=== PATIENT | female | born 1945 | race Caucasian/White ===

== ENCOUNTER 2022-04-08 12:38 | Emergency (ER) | payer MEDICARE ==
[2022-04-08 13:00] VITALS: BP 180/89
[2022-04-08] MEDS ORDERED: AMOX/CLAV 875 MG/125 MG TABLET PO STA (14:00)
[2022-04-08] MEDS ORDERED: HYDROcod/ACETAM 5/325 MG TABLET PO STA (14:00)
[2022-04-08] MEDS ORDERED: TETANUS/DIPHTHERIA/PERTUSSIS 0.5 ML SYRINGE IM ONE (14:00)
[2022-04-08] MEDS ORDERED: BACITRACIN ZINC OINT 1 PACKET TOP STA (14:02)
--- NOTE | 2022-04-08 14:02 | ED Physician Documentation ---
PD HPI WOUND RECHECK - Stated complaint Stated Complaint: FACIAL DOG BITE - Chief complaint Chief Complaint: Wound - Histroy obtained from History obtained from: Patient - Additional information Additional information: 76-year-old woman with conservatively managed CLL and unknown tetanus status was bitten to the face by friends dog just prior to arrival as she was bending over to pet it. No other injuries. Review of Systems Constitutional: reports: Reviewed and negative Cardiac: reports: Reviewed and negative Respiratory: reports: Reviewed and negative PD PAST MEDICAL HISTORY - Present Medications Home Medications: Ambulatory Orders Medication Instructions Recorded Confirmed Amox/Clav 875/125 [Augmentin] 1 each PO Q12H #10 tablet 04/08/22 Bacitracin Zinc Oint 1 applic TOP BID #1 each 04/08/22 HYDROcod/ACETAM 5/325 [[place] 5/325] 1 - 2 tab PO Q6H PRN #10 tablet 04/08/22 - Allergies Allergies/Adverse Reactions: Allergies Allergy/AdvReac Type Severity Reaction Status Date / Time No Known Drug Allergies Allergy Verified 04/08/22 12:59 PD ED PE NORMAL - Vitals Vital signs reviewed: Yes - General General: Alert and oriented X 3, No acute distress - HEENT HEENT: PERRL, EOMI - Neck Neck: Supple, no meningeal sign, No bony TTP - Neuro Neuro: Alert and oriented X 3, Normal speech - Psych Psych: Normal mood, Normal affect PD ED PE EXPANDED - HEENT HEENT Visual: 1 - bruising (Abrasions in the shape of a dog's mouth) 2 - laceration (Shallow puncture) 3 - laceration (Linear abrasion/very shallow laceration) 4 - swelling (No dental tenderness, no deformity) Results - Vitals Vitals: Vital Signs - 24 hr 04/08/22 12:56 Temperature 36.7 C Heart Rate 89 Respiratory 18 Rate Blood Pressure 180/89 H O2 Saturation 97 Oxygen O2 Source Room air Departure - Departure Disposition: 01 Home, Self Care Condition: Good Record reviewed to determine appropriate education?: Yes Instructions: Bites Scratches Animal Prescriptions: Amox/Clav 875/125 [Augmentin] 1 each PO Q12H #10 tablet Bacitracin Zinc Oint 1 applic TOP BID #1 each HYDROcod/ACETAM 5/325 [[place] 5/325] 1 - 2 tab PO Q6H PRN #10 tablet PRN Reason: Pain Comments: I sent your prescriptions electronically to the [facility] in [place]. Come back for any signs of infection which would include: Redness, swelling, drainage, increased pain, or fevers. You can wash it soap and water. Keep it covered and moist with bacitracin ointment which is available over the counter; avoid neosporin. I am prescribing a short course of narcotic pain medication for you. These are potentially dangerous and addictive medications that should be used carefully. These medications may constipate you. Take an rgps-kpy-shiciwd stool softener (docusate) twice daily with plenty of water while taking these medications. If you go 24 hours without a bowel movement, take gubr-ujp-zetynza miralax, per package instructions. Do not drink or drive while taking these medications. If you received narcotic or sedating medications while in the emergency de partment, do not drive for 24 hours. Store this medication in a safe, secure place and out of reach of children. It is a violation of federal law to give or sell this medication to another person or to use in a manner other than prescribed. The ED will not refill narcotic prescriptions, including prescriptions lost or stolen. To dispose of unwanted medications: 1. [facility] at [address] [place] [address] in [place] has a medication drop box. They accept prescription medications (in pill form) Tuesday through Tuesday 9:00 a.m. to 5:00 p.m. 2. The [place] [employer] accepts prescription medications (in pill form only) for disposal year round. Call for more information. 3. Contact the [facility] for the next [facility] sponsored prescription drug collection event. , [phone], or [phone]; Note that many narcotic pain relievers also contain Tylenol/acetaminophen. Please ensure that your total dose of acetaminophen from all sources does not exceed 3 g (3000 mg) per day.
== END 2022-04-08 14:32 | disposition home or self-care (01) ==
LOC: ED 12:38
DX: S00.571A Other superficial bite of lip, initial encounter (principal); S01.85XA Open bite of other part of head, initial encounter; W54.0XXA Bitten by dog, initial encounter; Y93.K9 Activity, other involving animal care
CPT/HCPCS: 90471; 99282; 99283

== ENCOUNTER 2022-04-08 17:46 | Emergency (ER) | payer MEDICARE ==
[2022-04-08 18:10] VITALS: BP 150/76
[2022-04-08] MEDS ORDERED: AMOX/CLAV 875 MG/125 MG TABLET PO STA (18:13)
[2022-04-08] MEDS ORDERED: HYDROcod/ACET 5/325 Prepack 4 PO STA (18:13)
--- NOTE | 2022-04-08 18:15 | ED Physician Documentation ---
PD HPI HEAD INJURY - Stated complaint Stated Complaint: HOLE IN CHEEK - Chief complaint Chief Complaint: Laceration - History obtained from History obtained from: Patient - Additional information Additional information: She was seen earlier in the day for multiple dog bites to the face. After discharge one of the lacerations which was thought to be shallow initially kind of opened up and started gaping. Review of Systems Constitutional: reports: Reviewed and negative Eyes: reports: Reviewed and negative Throat: reports: Reviewed and negative PD PAST MEDICAL HISTORY - Present Medications Home Medications: Ambulatory Orders Medication Instructions Recorded Confirmed Amox/Clav 875/125 [Augmentin] 1 each PO Q12H #10 tablet 04/08/22 04/08/22 Amox/Clav 875/125 [Augmentin] 1 each PO Q12H #14 tablet 04/08/22 Bacitracin Zinc Oint 1 applic TOP BID #1 each 04/08/22 Bacitracin Zinc Oint 1 applic TOP BID #1 each 04/08/22 04/08/22 HYDROcod/ACETAM 5/325 [[place] 5/325] 1 - 2 tab PO Q6H PRN #10 tablet 04/08/22 04/08/22 HYDROcod/ACETAM 5/325 [Energy 5/325] 1 - 2 tab PO Q6H PRN #15 tablet 04/08/22 - Allergies Allergies/Adverse Reactions: Allergies Allergy/AdvReac Type Severity Reaction Status Date / Time No Known Drug Allergies Allergy Verified 04/08/22 18:10 PD ED PE NORMAL - Vitals Vital signs reviewed: Yes - General General: Alert and oriented X 3, No acute distress - HEENT HEENT: Other (The laceration over the left mandible is now gaping on the lateral side which was not earlier.) - Neck Neck: Supple, no meningeal sign, No bony TTP - Neuro Neuro: Alert and oriented X 3, Normal speech Results - Vitals Vitals: Vital Signs - 24 hr 04/08/22 18:07 Temperature 36.8 C Heart Rate 78 Respiratory 16 Rate Blood Pressure 150/76 H O2 Saturation 96 Oxygen O2 Source Room air Procedures - Laceration (location) Left mandible area Length in cm: 1 Wound type: Linear, Into subcut fat Anesthesia: Lidocaine 1% with epi Wound preparation: Irrigated copiously NS Skin layer closure: Prolene, Interrupted, Size #-0 - enter number (6-0), Sutures - enter # (2) Other: Patient tolerated well, No complications, Neurovascular intact, Tetanus UTD Departure - Departure Disposition: 01 Home, Self Care Clinical Impression: Dog bite Qualifiers: Encounter type: initial encounter Qualified Code(s): W54.0XXA - Bitten by dog, initial encounter Condition: Good Record reviewed to determine appropriate education?: Yes Instructions: ED Bite Dog, ED Laceration Facial Sutr Tape Prescriptions: Amox/Clav 875/125 [Augmentin] 1 each PO Q12H #14 tablet Bacitracin Zinc Oint 1 applic TOP BID #1 each HYDROcod/ACETAM 5/325 [Energy 5/325] 1 - 2 tab PO Q6H PRN #15 tablet PRN Reason: Pain Comments: I sent your prescription electronically to [facility] in [place]. Come back for any signs of infection which would include: Redness, swelling, drainage, increased pain, or fevers. You can wash it soap and water. Keep it covered and moist with bacitracin ointment which is available over the counter; avoid neosporin. Follow-up with your physician in about 6-7 days for suture removal I am prescribing a short course of narcotic pain medication for you. These are potentially dangerous and addictive medications that should be used carefully. These medications may constipate you. Take an gilr-stx-eklwzqm stool softener (docusate) twice daily with plenty of water while taking these medications. If you go 24 hours without a bowel movement, take gbyb-chk-qnrewwf miralax, per package instructions. Do not drink or drive while taking these medications. If you received narcotic or sedating medications while in the emergency department, do not drive for 24 hours. Store this medication in a safe, secure place and out of reach of children. It is a violation of federal law to give or sell this medication to another person or to use in a manner other than prescribed. The ED will not refill narcotic prescriptions, including prescriptions lost or stolen. To dispose of unwanted medications: 1. [facility] at [address] in [place] has a medication drop box. They accept prescription medications (in pill form) Tuesday through Tuesday 9:00 a.m. to 5:00 p.m. 2. The [facility] accepts prescription medications (in pill form only) for disposal year round. Call for more information. 3. Contact the [facility] for the next [facility] sponsored prescription drug collection event. , [phone], or [phone]; Note that many narcotic pain relievers also contain Tylenol/acetaminophen. Please ensure that your total dose of acetaminophen from all sources does not exceed 3 g (3000 mg) per day.
[2022-04-08] MEDS ORDERED: BACITRACIN ZINC OINT 1 PACKET TOP STA (18:29)
== END 2022-04-08 18:35 | disposition home or self-care (01) ==
LOC: ED 17:46
DX: S01.85XA Open bite of other part of head, initial encounter (principal); S00.571A Other superficial bite of lip, initial encounter; W54.0XXA Bitten by dog, initial encounter; Y93.59 Activity, other involving other sports and athletics played individually
CPT/HCPCS: 12011; 90471; 90715; 99282; 99283; A9270

== ENCOUNTER 2024-01-23 20:30 | Inpatient (IN) | payer MEDICARE ==
[2024-01-23 21:09] LABS: BASOPHILS % (AUTO) 0.2 %; EOSINOPHILS % (AUTO) 0.2 %; HCT - HEMATOCRIT 35.2 % (37.0-47.0); HGB - HEMOGLOBIN 10.9 g/dL (12.0-16.0); LYMPHOCYTES % (AUTO) 73.4 %; MONOCYTES % (AUTO) 2.2 %; NEUTROPHILS % (AUTO) 23.8 %; PLT - PLATELET COUNT 208 10^3/uL (130-450); RED BLOOD COUNT 3.63 10^6/uL (4.20-5.40); RED CELL DISTRIBUTION WIDTH 14.1 % (12.0-15.0); WHITE BLOOD COUNT 32.7 x10^3/uL (4.8-10.8)
[2024-01-23 21:11] LABS: BAND NEUTROPHILS % (MANUAL) 0 %
[2024-01-23 21:25] LABS: BILIRUBIN,URINE NEGATIVE (NEGATIVE); GLUCOSE, URINE (UA) NEGATIVE (NEGATIVE); KETONES,URINE (UA) 15 mg/dL (NEGATIVE); LEUKOCYTE ESTERASE, URINE NEGATIVE (NEGATIVE); NITRITE,URINE NEGATIVE (NEGATIVE); OCCULT BLOOD,URINE SMALL (NEGATIVE); PH,URINE 6.5 PH (5.0-7.5); PROTEIN,URINE NEGATIVE (NEGATIVE); UROBILINOGEN,URINE 0.2 (NORMAL) E.U./dL (NORMAL)
[2024-01-23 21:25] LABS: ALBUMIN 4.3 g/dL (3.2-5.5); CALCIUM 8.7 mg/dL (8.5-10.3); CREATININE 0.8 mg/dL (0.6-1.3); POTASSIUM 3.8 mmol/L (3.5-4.5); TOTAL PROTEIN 6.4 g/dL (6.4-8.9)
[2024-01-23 21:31] LABS: CLARITY,URINE CLEAR (CLEAR)
--- NOTE | 2024-01-23 21:35 | ED Physician Documentation ---
PD HPI ABD PAIN - Stated complaint Stated Complaint: R SIDE PX - Chief complaint Chief Complaint: Abd Pain - History obtained from History obtained from: Patient - History of Present Illness Timing - onset: How many months ago Quality: Cramping, Aching, Pain PD PAST MEDICAL HISTORY - Past Medical History Past Medical History: Yes GI: Diverticulitis - Past Surgical History Past Surgical History: Yes - Present Medications Home Medications: Ambulatory Orders Medication Instructions Recorded Confirmed Fluorometholone [Fml] 1 drops EACHEYE DAILY 01/24/24 01/24/24 Rosuvastatin Calcium [Crestor] 5 mg PO DAILY 01/24/24 01/24/24 Temazepam [Restoril] 7.5 mg PO HS 01/24/24 01/24/24 - Allergies Allergies/Adverse Reactions: Allergies Allergy/AdvReac Type Severity Reaction Status Date / Time diphenhydramine Allergy Itching Verified 01/23/24 20:34 [From Benadryl] - Social History Does the pt smoke?: No Smoking Status: Never smoker Does the pt drink ETOH?: No Does the pt have substance abuse?: No - Immunizations Immunizations are current?: Yes PD ED PE NORMAL - Vitals Vital signs reviewed: Yes - General General: Alert and oriented X 3, Well developed/nourished, Other. No: No acute distress (she appears in pain from left abd. ) - Neck Neck: Supple, no meningeal sign, No adenopathy - Cardiac Cardiac: RRR, No murmur - Respiratory Respiratory: No respiratory distress, Clear bilaterally - Abdomen Abdomen: Non distended Results - Vitals Vitals: Vital Signs - 24 hr 01/24/24 01/25/24 01/25/24 23:53 04:45 07:57 Temperature 36.4 C L 36.8 C 36.7 C Heart Rate [ 72 75 73 Brachial] Respiratory 20 16 18 Rate Blood Pressure 118/68 119/57 L 116/55 L [Left Brachial artery] O2 Saturation 97 93 93 Oxygen O2 Source Room air - Labs Labs: Laboratory Tests 01/23/24 01/23/24 01/23/24 21:03 21:03 21:15 WBC 32.7 H RBC 3.63 L Hgb 10.9 L Hct 35.2 L MCV 97.0 MCH 30.0 MCHC 31.0 L RDW 14.1 Plt Count 208 MPV 9.0 Neut # (Auto) Not Reportable Lymph # (Auto) Not Reportable [place] # (Auto) Not Reportable Eos # (Auto) Not Reportable Baso # (Auto) Not Reportable Absolute Nucleated RBC Not Reportable Total Counted 100 Band Neuts % (Manual) 0 Abnorm Lymph % (Manual) 3 Nucleated RBC % Not Reportable Neutrophils # (Manual) 5.6 Lymphocytes # (Manual) 26.5 H Monocytes # (Manual) 0.7 Eosinophils # (Manual) 0.0 Basophils # (Manual) 0.0 Differential Comment MANUAL DIFFERENTIAL Manual Slide Review WBC Morphology 1+ SMUDGE CELLS Platelet Estimate NORMAL (130-450,000) Platelet Morphology RBC Morph Micro Appear NORMAL APPEARANCE Sodium 133 L Potassium 3.8 Chloride 100 L Carbon Dioxide 26 Anion Gap 7.0 BUN 9 Creatinine 0.8 Estimated GFR (MDRD) 70 L Glucose 96 Lactic Acid Calcium 8.7 Total Bilirubin 1.0 AST 13 ALT 10 Alkaline Phosphatase 37 L Total Protein 6.4 Albumin 4.3 Globulin 2.1 Albumin/Globulin Ratio 2.0 Lipase 20 Urine Color COLORLESS Urine Clarity CLEAR Urine pH 6.5 Ur Specific [place] <=1.005 Urine Protein NEGATIVE Urine Glucose (UA) NEGATIVE Urine Ketones 15 H Urine Occult Blood SMALL H Urine Nitrite NEGATIVE Urine Bilirubin NEGATIVE Urine Urobilinogen 0.2 (NORMAL) Ur Leukocyte Esterase NEGATIVE Urine RBC 0-5 Urine WBC 0-3 Ur Squamous Epith Cells RARE Squamous Urine Bacteria Rare Ur Microscopic Review INDICATED Urine Culture Comments NOT INDICATED Slides for Path Review 01/24/24 01/24/24 01/24/24 00:03 05:58 05:58 WBC 21.4 H RBC 3.45 L Hgb 10.7 L Hct 33.7 L MCV 97.7 MCH 31.0 MCHC 31.8 L RDW 14.2 Plt Count 173 MPV 9.3 Neut # (Auto) Not Reportable Lymph # (Auto) Not Reportable [place] # (Auto) Not Reportable Eos # (Auto) Not Reportable Baso # (Auto) Not Reportable Absolute Nucleated RBC Not Reportable Total Counted 100 Band Neuts % (Manual) 0 Abnorm Lymph % (Manual) 0 Nucleated RBC % Not Reportable Neutrophils # (Manual) 7.9 H Lymphocytes # (Manual) 13.3 H Monocytes # (Manual) 0.2 Eosinophils # (Manual) 0.0 Basophils # (Manual) 0.0 Differential Comment MANUAL DIFFERENTIAL Manual Slide Review WBC Morphology Platelet Estimate NORMAL (130-450,000) Platelet Morphology RBC Morph Micro Appear NORMAL APPEARANCE Sodium 140 Potassium 3.9 Chloride 111 Carbon Dioxide 23 Anion Gap 6.0 BUN 7 Creatinine 0.7 Estimated GFR (MDRD) 81 L Glucose 84 Lactic Acid 0.7 Calcium 7.8 L Total Bilirubin AST ALT Alkaline Phosphatase Total Protein Albumin Globulin Albumin/Globulin Ratio Lipase Urine Color Urine Clarity Urine pH Ur Specific [place] Urine Protein Urine Glucose (UA) Urine Ketones Urine Occult Blood Urine Nitrite Urine Bilirubin Urine Urobilinogen Ur Leukocyte Esterase Urine RBC Urine WBC Ur Squamous Epith Cells Urine Bacteria Ur Microscopic Review Urine Culture Comments Slides for Path Review 01/24/24 01/24/24 01/24/24 05:58 11:50 15:15 WBC 22.8 H RBC 3.38 L Hgb 10.3 L Hct 33.7 L MCV 99.7 H MCH 30.5 MCHC 30.6 L RDW 14.3 Plt Count 188 MPV 9.4 Neut # (Auto) Not Reportable Lymph # (Auto) Not Reportable [place] # (Auto) Not Reportable Eos # (Auto) Not Reportable Baso # (Auto) Not Reportable Absolute Nucleated RBC Not Reportable Total Counted 100 Band Neuts % (Manual) 0 Abnorm Lymph % (Manual) 0 Nucleated RBC % Not Reportable Neutrophils # (Manual) 9.8 H Lymphocytes # (Manual) 12.3 H Monocytes # (Manual) 0.5 Eosinophils # (Manual) 0.0 Basophils # (Manual) 0.2 H Differential Comment MANUAL DIFFERENTIAL Manual Slide Review WBC Morphology Platelet Estimate NORMAL (130-450,000) Platelet Morphology NORMAL APPEARANCE RBC Morph Micro Appear NORMAL APPEARANCE Sodium Potassium Chloride Carbon Dioxide Anion Gap BUN Creatinine Estimated GFR (MDRD) Glucose Lactic Acid 0.7 0.6 Calcium Total Bilirubin AST ALT Alkaline Phosphatase Total Protein Albumin Globulin Albumin/Globulin Ratio Lipase Urine Color Urine Clarity Urine pH Ur Specific [place] Urine Protein Urine Glucose (UA) Urine Ketones Urine Occult Blood Urine Nitrite Urine Bilirubin Urine Urobilinogen Ur Leukocyte Esterase Urine RBC Urine WBC Ur Squamous Epith Cells Urine Bacteria Ur Microscopic Review Urine Culture Comments Slides for Path Review 01/24/24 01/25/24 01/25/24 18:20 04:49 04:49 WBC 17.2 H RBC 2.98 L Hgb 8.8 L Hct 29.5 L MCV 99.0 MCH 29.5 MCHC 29.8 L RDW 14.2 Plt Count 165 MPV 9.2 Neut # (Auto) Not Reportable Lymph # (Auto) Not Reportable [place] # (Auto) Not Reportable Eos # (Auto) Not Reportable Baso # (Auto) Not Reportable Absolute Nucleated RBC Not Reportable Total Counted 100 Band Neuts % (Manual) 0 Abnorm Lymph % (Manual) 0 Nucleated RBC % Not Reportable Neutrophils # (Manual) 4.8 Lymphocytes # (Manual) 12.0 H Monocytes # (Manual) 0.3 Eosinophils # (Manual) 0.0 Basophils # (Manual) 0.0 Differential Comment MANUAL DIFFERENTIAL Manual Slide Review Indicated WBC Morphology 1+ SMUDGE CELLS Platelet Estimate NORMAL (130-450,000) Platelet Morphology NORMAL APPEARANCE RBC Morph Micro Appear 1+ HYPOCHROMASIA Sodium 140 Potassium 3.2 L Chloride 110 Carbon Dioxide 24 Anion Gap 6.0 BUN 4 L Creatinine 0.6 Estimated GFR (MDRD) 97 Glucose 82 Lactic Acid 0.5 Calcium 6.9 L Total Bilirubin AST ALT Alkaline Phosphatase Total Protein Albumin Globulin Albumin/Globulin Ratio Lipase Urine Color Urine Clarity Urine pH Ur Specific [place] Urine Protein Urine Glucose (UA) Urine Ketones Urine Occult Blood Urine Nitrite Urine Bilirubin Urine Urobilinogen Ur Leukocyte Esterase Urine RBC Urine WBC Ur Squamous Epith Cells Urine Bacteria Ur Microscopic Review Urine Culture Comments Slides for Path Review Indicated PD Medical Decision Making - ED course Complexity details: reviewed results (diverticulitis transverse colon in area of her pain. No abscess nor perforation), considered differential (quick onset of RUQ abd pian today with nausea and worsening pain. Some vomiting. Normal BMs. Has had once prior in this location from diverticulitis. Other episdoes of that have been LLQ. Recent hospitalization for lower GI bleed, presume left sigmoid. Prior left partial colectomy due to this. ), d/w patient Reviewed Lab Results: eleated WBC in range that is usual for her at 35K due to CLL. Is igen IV fluids and eds for pian and mausa. Impoved but sill huritng. Given the degree of pain, abruptness, with some quadrantic peritoneal findings on exam, and immuneimpaired with the CLL, I [facility] Departure - Departure Disposition: ED Place in Observation Clinical Impression: CLL (chronic lymphocytic leukemia), Abdominal pain, Acute diverticulitis Condition: Stable Discharge Date/Time: 01/24/24 00:01
[2024-01-23 21:36] LABS: BACTERIA,URINE Rare /HPF (None Seen); RBC,URINE 0-5 /HPF (0-5); SQUAMOUS EPITHELIAL CELL,UR RARE Squamous (<= Few); WBC,URINE 0-3 /HPF (0-5)
[2024-01-23 21:39] LABS: ABNORMAL LYMPHS % (MANUAL) 3 %; DIFFERENTIAL COMMENT MANUAL DIFFERENTIAL; LYMPHOCYTES # (MANUAL) 26.5 10^3/uL (1.5-3.5); LYMPHOCYTES % (MANUAL) 78 %; MONOCYTES # (MANUAL) 0.7 10^3/uL (0.0-1.0); NEUTROPHILS # (MANUAL) 5.6 10^3/uL (1.5-6.6); PLATELET ESTIMATE, MANUAL NORMAL (130-450,000) (NORMAL); RBC MORPHOLOGY (MULTIPLE) NORMAL APPEARANCE (NORMAL)
[2024-01-23 21:50] LABS: WBC MORPHOLOGY (MULTIPLE) 1+ SMUDGE CELLS (NORMAL)
[2024-01-23] MEDS ORDERED: iohexoL-300 100 ML VIAL ONE (22:04)
[2024-01-23] MEDS: SODIUM CHLORIDE 0.9% 1,000 ML IV STA (22:14)
[2024-01-23] MEDS: ONDANSETRON 4 MG/2 ML VIAL IVP STA (22:14)
[2024-01-23] MEDS: KETOROLAC 15 MG/ML VIAL IVP STA (22:14)
[2024-01-23] MEDS: HYDROmorphone 1 MG/ML CARPUJECT IVP STA (22:15)
[2024-01-23] MEDS: iohexoL-300 100 ML VIAL IVP ONE (22:16)
--- NOTE | 2024-01-23 22:31 | CT Report ---
PROCEDURE: Abdomen/Pelvis W INDICATIONS: Right abd pain, h/o diverticulitis. CONTRAST: Omni 300, 100mls TECHNIQUE: After the administration of intravenous contrast, a CT scan of the abdomen and pelvis was performed. Images were recorded and evaluated at appropriate window settings. Reformats: coronal and sagittal. F or radiation dose reduction, the following was used: automated exposure control, adjustment of mA and /or kV according to patient size. COMPARISON: None. FINDINGS: Image quality: Diagnostic. Lower chest: Unremarkable. Liver: No solid mass. Gallbladder: No radiopaque stones or wall thickening. Biliary tree: No intrahepatic or extrahepatic dilation, accounting for age. Spleen: No splenomegaly. Pancreas: No pancreatic ductal dilation. Adrenals: No adrenal nodule. Kidneys and ureters: No hydronephrosis. No solid mass. Left kidney inferior pole cyst measuring 2.5 c m, (). Several thin septations. Stomach, bowel and peritoneum: Rectosigmoid anastomosis. Diverticulosis. Inflammatory change about th e proximal transverse colon, (). No extraluminal gas. The appendix is not seen. No small bowel ob struction. The stomach is within normal limits. No pneumoperitoneum. No ascites. Lymph nodes: No central or retroperitoneal adenopathy. Vessels: No infrarenal aortic aneurysm. Calcified plaque. PELVIS Reproductive organs: Uterus is absent. Bladder: No stone. Pelvic lymph nodes: No pelvic adenopathy by size criteria. Bones: No aggressive osseous abnormality. Other: No significant ventral or inguinal hernia. IMPRESSION: 1. Proximal transverse colon diverticulitis. No abscess. 2. Rectosigmoid anastomosis. No small bowel obstruction. No adenopathy. Reviewed by: Ruddy Corrigan MD on 01/23/2024 10:29 PM PDT Approved by: Ruddy Corrigan MD on 01/23/2024 10:29 PM PDT Station ID: [id number]
[2024-01-23] MEDS: metroNIDAZOLE 500 MG/100 ML 500 MG/100 ML BAG IV ONE (23:11)
[2024-01-23] MEDS: cefTRIAXone 1 GM VIAL IVP STA (23:11)
--- NOTE | 2024-01-23 23:59 | HISTORY & PHYSICAL EXAMINATION ---
Chief Complaint - Chief Complaint Chief Complaint: abdominal pain History of Present Illness - Admitted From Admitted From:: Home - History Obtained From Records Reviewed: Yes History obtained from: Patient - History of Present Illness HPI Comment/Other: Mrs. Penaloza is a 78yo F with a history of diverticulosis who presented to the ED with abdominal pain. Pain has progressively worsened for the past several days. It is more generalized but located in the upper right and left quadrants of her abdomen. she has some nausea, but no vomiting. she denies any sick contacts. she is visiting from out of town. she was recently discharge from the hospital due to diverticular bleeding. she did require blood transfusion of 1 unit PRBC. she was to follow up with her primary GI specialist for a colonoscopy in the upcoming weeks. Chart reviewed for this admission. patient met sepsis criteria on presentation. CT was obtained and demonstrated changes consistent with diverticulitis of the transverse colon. during my evaluation patient was resting comfortably and rated her pain 5/10 in intensity. this visit was performed using telemedicine modalities incluidng live-video. Informed consent was obtained from patient to proceed with this visit via tele medicine. History - Past Medical History GI: reports: Diverticulitis MRSA Hx?: No Meds/Allgy - Home Medications Home Medications: Ambulatory Orders Medication Instructions Recorded Confirmed Amox/Clav 875/125 [Augmentin] 1 each PO Q12H #10 tablet 04/08/22 04/08/22 Amox/Clav 875/125 [Augmentin] 1 each PO Q12H #14 tablet 04/08/22 Bacitracin Zinc Oint 1 applic TOP BID #1 each 04/08/22 Bacitracin Zinc Oint 1 applic TOP BID #1 each 04/08/22 04/08/22 HYDROcod/ACETAM 5/325 [[place] 5/325] 1 - 2 tab PO Q6H PRN #10 tablet 04/08/22 04/08/22 HYDROcod/ACETAM 5/325 [[place] 5/325] 1 - 2 tab PO Q6H PRN #15 tablet 04/08/22 - Allergies Allergies/Adverse Reactions: Allergies Allergy/AdvReac Type Severity Reaction Status Date / Time diphenhydramine Allergy Itching Verified 01/23/24 20:34 [From [place]itos] Review of Systems - Gastrointestinal Gastrointestinal: reports: Abdominal pain, Nausea. denies: Vomiting, Coffee grounds emesis - All Other Systems All Other Systems: reports: Reviewed and negative Exam - Vital Signs Reviewed Vital Signs: Yes Vital Signs: Vital Signs x48h Temp Pulse Resp BP Pulse Ox 01/23/24 23:29 84 18 122/67 95 01/23/24 22:11 36.8 C 96 18 154/87 H 96 01/23/24 20:35 36.8 C 79 16 160/80 H 100 - Physical Exam General Appearance: positive: No acute distress, Alert Eyes Bilateral: positive: Normal inspection, EOMI Respiratory: positive: No respiratory distress, Breath sounds nml Cardiovascular: positive: Regular rate & rhythm, Tachycardia Abdomen: positive: No distention, Tenderness. negative: Guarding Neurologic/Psychiatric: positive: Oriented x3 Sepsis Event Note (H) - Evaluation Current Stage of Sepsis: Sepsis Possible source of Sepsis: positive: GI tract/intra-abdominal - Sepsis Criteria Sepsis Criteria: Recorded Heart Rate greater than 90 bpm, WBC count greater than 10% bands Conclusion/Plan - Problem List (1) Acute diverticulitis Conclusion/Plan: -continue with IV antibiotics: Flagyl q8h and ciprofloxacin -bowel rest, clear liquids and advance after 12 hours as tolerated -pain management: IV tylenol and morphine, switch to oral regiman as toleated -trend inflammatory markers, Lactic acid, wbc -follow up CT if pain or symptoms worsen, may require follow up with general surgery or GI consultation if symptoms are not controlled (2) Sepsis Conclusion/Plan: closely monitor with continuous telemetry, serial BP and temperature monitoring -continue with empiric antibiotics and IVF resuscitation -trend inflammatory marker to resolution. -cultures pending. - Lab Results Fish Bones: 01/23/24 21:03 01/23/24 21:03 Core Measures - Anticipated LOS I expect patient to be DC'd or transferred within 96 hours.: Yes Telemedicine Consult Details - Provider Location & Consult Time Telemedicine consultation conducted via videoconferencing?: Yes
[2024-01-24] MEDS: SODIUM CHLORIDE 0.9% 1,000 ML IV SCH ×2 (00:45→19:07)
[2024-01-24] MEDS: ACETAMINOPHEN 1,000 MG/100 ML 1,000 MG/100 ML BAG IV PRN (00:48)
[2024-01-24] MEDS: SODIUM CHLORIDE FLUSH 0.9% 10 ML SYRINGE IVP SCH (00:52)
[2024-01-24] MEDS: CIPROFLOXACIN 400 MG/200 ML 400 MG/200 ML BAG IV SCH (01:14)
[2024-01-24] MEDS: ONDANSETRON 4 MG/2 ML VIAL IVP PRN (01:34)
[2024-01-24] MEDS: metroNIDAZOLE 500 MG/100 ML 500 MG/100 ML BAG IV SCH (02:39)
[2024-01-24] MEDS: MORPHINE 2 MG/ML CARPUJECT IVP PRN (05:46)
[2024-01-24 06:06] LABS: BASOPHILS % (AUTO) 0.2 %; EOSINOPHILS % (AUTO) 0.1 %; HCT - HEMATOCRIT 33.7 % (37.0-47.0); HGB - HEMOGLOBIN 10.7 g/dL (12.0-16.0); LYMPHOCYTES % (AUTO) 71.2 %; MEAN CORPUSCULAR HGB CONC 31.8 g/dL (32.0-36.0); MEAN CORPUSCULAR VOLUME 97.7 fL (81.0-99.0); MEAN PLATELET VOLUME 9.3 fL (7.9-10.8); MONOCYTES % (AUTO) 2.6 %; NEUTROPHILS % (AUTO) 25.7 %; PLT - PLATELET COUNT 173 10^3/uL (130-450); RED BLOOD COUNT 3.45 10^6/uL (4.20-5.40); RED CELL DISTRIBUTION WIDTH 14.2 % (12.0-15.0); WHITE BLOOD COUNT 21.4 x10^3/uL (4.8-10.8)
[2024-01-24 06:10] LABS: ABNORMAL LYMPHS % (MANUAL) 0 %; BAND NEUTROPHILS % (MANUAL) 0 %
[2024-01-24 06:25] LABS: CALCIUM 7.8 mg/dL (8.5-10.3); CREATININE 0.7 mg/dL (0.6-1.3); POTASSIUM 3.9 mmol/L (3.5-4.5)
[2024-01-24 06:32] LABS: DIFFERENTIAL COMMENT MANUAL DIFFERENTIAL; LYMPHOCYTES # (MANUAL) 13.3 10^3/uL (1.5-3.5); LYMPHOCYTES % (MANUAL) 62 %; MONOCYTES # (MANUAL) 0.2 10^3/uL (0.0-1.0); NEUTROPHILS # (MANUAL) 7.9 10^3/uL (1.5-6.6); PLATELET ESTIMATE, MANUAL NORMAL (130-450,000) (NORMAL); RBC MORPHOLOGY (MULTIPLE) NORMAL APPEARANCE (NORMAL)
--- NOTE | 2024-01-24 09:21 | PROVIDER PROGRESS NOTE ---
Subjective - Prog Note Date Prog Note Date: 01/24/24 Prog Note Time: 09:20 - Subjective Pt reports feeling: Worse Subjective: she flew from [place] yesterday and was feeling worse and worse throughout the day. When she got to [facility] yesterday evening she was feeling quite poorly she tried [id number] pain relievers without much help. She was unable to tolerate small amounts of food but the abdominal pain kept worsening and therefore she presented to the emergency department. Her CT showed diverticulitis without abscess or perforation. She continues to have nausea and dry heaving. She continues to have a lot of abdominal pain. 2 weeks ago she was hospitalized back in her hometown of [facility] for a diverticular bleed. She is in the process of traveling for several months she is here on the [facility] seeing family and then planning to spend the better part of the winter in [place]. She and her are questioning this decision at this time. We had a long discussion about plans for the winter regarding her health this afternoon. I anticipate that this will be a decision that can be made in the next several days but not today. We did have a brief advance care planning discussion this afternoon lasting about 10 minutes we elected for DNR with selective treatment. Tatiana would not want to be intubated for any length of time. Current Medications - Current Medications Current Medications: Medications Morphine Sulfate (Morphine 2 Mg/Ml Carpuject) 2 mg IVP Q2HR PRN PRN Reason: Pain 8 to 10 Last Admin: 01/24/24 15:34 Dose: 2 mg Acetaminophen (Acetaminophen) 1,000 mg in 100 mls @ 400 mls/hr IV Q6HR PRN PRN Reason: Moderate Pain (Level 4-6) Ciprofloxacin (Cipro 400 Mg/200 Ml) 400 mg in 200 mls @ 200 mls/hr IV Q12H HAYLEY Last Admin: 01/24/24 15:15 Dose: Infused Docusate Sodium (Docusate Sodium 250 Mg Capsule) 250 mg PO DAILY HAYLEY Lorazepam (Lorazepam 2 Mg/Ml Vial) 1 mg IVP Q4H PRN PRN Reason: Nausea / Vomiting Metronidazole (Flagyl 500 Mg/100 Ml) 500 mg in 100 mls @ 100 mls/hr IV Q8H HAYLEY Last Admin: 01/24/24 16:35 Dose: Infused Oxycodone HCl (Oxycodone 5 Mg Tablet) 5 mg PO Q4HR PRN PRN Reason: Moderate Pain (Level 4-6) Patient Own Medication (Patient Own Med (Fluorometholone 0.1% Eye Drops)) 1 each EACHEYE DAILY HAYLEY Last Admin: 01/24/24 15:14 Dose: 1 each Prochlorperazine Edisylate (Prochlorperazine 10 Mg/2 Ml Vial) 10 mg IVP Q6HR PRN PRN Reason: Nausea / Vomiting Last Admin: 01/24/24 16:43 Dose: 10 mg Objective - Vital Signs/Intake & Output Vital Signs: Vital Signs x48h Temp Pulse Resp BP Pulse Ox O2 Flow Rate 01/24/24 08:24 36.4 C L 68 19 112/56 L 93 0 01/24/24 05:41 36.5 C 83 20 131/71 H 97 Intake & Output: Intake & Output 01/21/24 01/22/24 01/23/24 01/24/24 23:59 23:59 23:59 23:59 Intake Total 1000 883.333 Balance 1000 883.333 - Objective General Appearance: positive: Mild distress Eyes Bilateral: positive: Normal inspection ENT: positive: ENT inspection nml Neck: positive: Nml inspection Respiratory: positive: Chest non-tender, No respiratory distress, Breath sounds nml Cardiovascular: positive: Regular rate & rhythm Abdomen: positive: Tenderness (bilateral lower quadrants, worse on the right.) Skin: positive: Color nml Extremities: positive: Non-tender, No pedal edema Neurologic/Psychiatric: positive: Oriented x3 - Lab Results Fish Bones: 01/24/24 15:15 01/24/24 05:58 Other Labs: Lab Results x24hrs 01/24/24 01/24/24 01/24/24 Range/Units 05:58 05:58 05:58 WBC 21.4 H (4.8-10.8) x10^3/uL RBC 3.45 L (4.20-5.40) 10^6/uL Hgb 10.7 L (12.0-16.0) g/dL Hct 33.7 L (37.0-47.0) % MCV 97.7 (81.0-99.0) fL MCH 31.0 (27.0-31.0) pg MCHC 31.8 L (32.0-36.0) g/dL RDW 14.2 (12.0-15.0) % Plt Count 173 (130-450) 10^3/uL MPV 9.3 (7.9-10.8) fL Neut # (Auto) Not Reportable Lymph # (Auto) Not Reportable [place] # (Auto) Not Reportable Eos # (Auto) Not Reportable Baso # (Auto) Not Reportable Absolute Nucleated RBC Not Reportable Total Counted 100 Band Neuts % (Manual) 0 (0 - 10) % Abnorm Lymph % (Manual) 0 % Nucleated RBC % Not Reportable Neutrophils # (Manual) 7.9 H (1.5-6.6) 10^3/uL Lymphocytes # (Manual) 13.3 H (1.5-3.5) 10^3/uL Monocytes # (Manual) 0.2 (0.0-1.0) 10^3/uL Eosinophils # (Manual) 0.0 (0-0.7) 10^3/uL Basophils # (Manual) 0.0 (0-0.1) 10^3/uL Differential Comment MANUAL DIFFERENTIAL WBC Morphology (NORMAL) Platelet Estimate NORMAL (130-450,000) (NORMAL) RBC Morph Micro Appear NORMAL APPEARANCE (NORMAL) Sodium 140 (135-145) mmol/L Potassium 3.9 (3.5-4.5) mmol/L Chloride 111 (101-111) mmol/L Carbon Dioxide 23 (21-32) mmol/L Anion Gap 6.0 (6-13) BUN 7 (6-20) mg/dL Creatinine 0.7 (0.6-1.3) mg/dL Estimated GFR (MDRD) 81 L (>89) Glucose 84 (74-104) mg/dL Lactic Acid 0.7 (0.5-2.2) mmol/L Calcium 7.8 L (8.5-10.3) mg/dL Total Bilirubin (0.2-1.0) mg/dL AST (10-42) IU/L ALT (10-60) IU/L Alkaline Phosphatase (42-121) IU/L Total Protein (6.4-8.9) g/dL Albumin (3.2-5.5) g/dL Globulin (2.1-4.2) g/dL Albumin/Globulin Ratio (1.0-2.2) Lipase (11-82) U/L Urine Color Urine Clarity (CLEAR) Urine pH (5.0-7.5) PH Ur Specific [place] (1.002-1.030) Urine Protein (NEGATIVE) mg/dL Urine Glucose (UA) (NEGATIVE) mg/dL Urine Ketones (NEGATIVE) mg/dL Urine Occult Blood (NEGATIVE) Urine Nitrite (NEGATIVE) Urine Bilirubin (NEGATIVE) Urine Urobilinogen (NORMAL) E.U./dL Ur Leukocyte Esterase (NEGATIVE) Urine RBC (0-5) /HPF Urine WBC (0-5) /HPF Ur Squamous Epith Cells (<= Few) Urine Bacteria (None Seen) /HPF Ur Microscopic Review Urine Culture Comments 01/24/24 01/23/24 01/23/24 Range/Units 00:03 21:15 21:03 WBC (4.8-10.8) x10^3/uL RBC (4.20-5.40) 10^6/uL Hgb (12.0-16.0) g/dL Hct (37.0-47.0) % MCV (81.0-99.0) fL MCH (27.0-31.0) pg MCHC (32.0-36.0) g/dL RDW (12.0-15.0) % Plt Count (130-450) 10^3/uL MPV (7.9-10.8) fL Neut # (Auto) Lymph # (Auto) [place] # (Auto) Eos # (Auto) Baso # (Auto) Absolute Nucleated RBC Total Counted Band Neuts % (Manual) (0 - 10) % Abnorm Lymph % (Manual) % Nucleated RBC % Neutrophils # (Manual) (1.5-6.6) 10^3/uL Lymphocytes # (Manual) (1.5-3.5) 10^3/uL Monocytes # (Manual) (0.0-1.0) 10^3/uL Eosinophils # (Manual) (0-0.7) 10^3/uL Basophils # (Manual) (0-0.1) 10^3/uL Differential Comment WBC Morphology (NORMAL) Platelet Estimate (NORMAL) RBC Morph Micro Appear (NORMAL) Sodium 133 L (135-145) mmol/L Potassium 3.8 (3.5-4.5) mmol/L Chloride 100 L (101-111) mmol/L Carbon Dioxide 26 (21-32) mmol/L Anion Gap 7.0 (6-13) BUN 9 (6-20) mg/dL Creatinine 0.8 (0.6-1.3) mg/dL Estimated GFR (MDRD) 70 L (>89) Glucose 96 (74-104) mg/dL Lactic Acid 0.7 (0.5-2.2) mmol/L Calcium 8.7 (8.5-10.3) mg/dL Total Bilirubin 1.0 (0.2-1.0) mg/dL AST 13 (10-42) IU/L ALT 10 (10-60) IU/L Alkaline Phosphatase 37 L (42-121) IU/L Total Protein 6.4 (6.4-8.9) g/dL Albumin 4.3 (3.2-5.5) g/dL Globulin 2.1 (2.1-4.2) g/dL Albumin/Globulin Ratio 2.0 (1.0-2.2) Lipase 20 (11-82) U/L Urine Color COLORLESS Urine Clarity CLEAR (CLEAR) Urine pH 6.5 (5.0-7.5) PH Ur Specific [place] <=1.005 (1.002-1.030) Urine Protein NEGATIVE (NEGATIVE) mg/dL Urine Glucose (UA) NEGATIVE (NEGATIVE) mg/dL Urine Ketones 15 H (NEGATIVE) mg/dL Urine Occult Blood SMALL H (NEGATIVE) Urine Nitrite NEGATIVE (NEGATIVE) Urine Bilirubin NEGATIVE (NEGATIVE) Urine Urobilinogen 0.2 (NORMAL) (NORMAL) E.U./dL Ur Leukocyte Esterase NEGATIVE (NEGATIVE) Urine RBC 0-5 (0-5) /HPF Urine WBC 0-3 (0-5) /HPF Ur Squamous Epith Cells RARE Squamous (<= Few) Urine Bacteria Rare (None Seen) /HPF Ur Microscopic Review INDICATED Urine Culture Comments NOT INDICATED 01/23/24 Range/Units 21:03 WBC 32.7 H (4.8-10.8) x10^3/uL RBC 3.63 L (4.20-5.40) 10^6/uL Hgb 10.9 L (12.0-16.0) g/dL Hct 35.2 L (37.0-47.0) % MCV 97.0 (81.0-99.0) fL MCH 30.0 (27.0-31.0) pg MCHC 31.0 L (32.0-36.0) g/dL RDW 14.1 (12.0-15.0) % Plt Count 208 (130-450) 10^3/uL MPV 9.0 (7.9-10.8) fL Neut # (Auto) Not Reportable Lymph # (Auto) Not Reportable [place] # (Auto) Not Reportable Eos # (Auto) Not Reportable Baso # (Auto) Not Reportable Absolute Nucleated RBC Not Reportable Total Counted 100 Band Neuts % (Manual) 0 (0 - 10) % Abnorm Lymph % (Manual) 3 % Nucleated RBC % Not Reportable Neutrophils # (Manual) 5.6 (1.5-6.6) 10^3/uL Lymphocytes # (Manual) 26.5 H (1.5-3.5) 10^3/uL Monocytes # (Manual) 0.7 (0.0-1.0) 10^3/uL Eosinophils # (Manual) 0.0 (0-0.7) 10^3/uL Basophils # (Manual) 0.0 (0-0.1) 10^3/uL Differential Comment MANUAL DIFFERENTIAL WBC Morphology 1+ SMUDGE CELLS (NORMAL) Platelet Estimate NORMAL (130-450,000) (NORMAL) RBC Morph Micro Appear NORMAL APPEARANCE (NORMAL) Sodium (135-145) mmol/L Potassium (3.5-4.5) mmol/L Chloride (101-111) mmol/L Carbon Dioxide (21-32) mmol/L Anion Gap (6-13) BUN (6-20) mg/dL Creatinine (0.6-1.3) mg/dL Estimated GFR (MDRD) (>89) Glucose (74-104) mg/dL Lactic Acid (0.5-2.2) mmol/L Calcium (8.5-10.3) mg/dL Total Bilirubin (0.2-1.0) mg/dL AST (10-42) IU/L ALT (10-60) IU/L Alkaline Phosphatase (42-121) IU/L Total Protein (6.4-8.9) g/dL Albumin (3.2-5.5) g/dL Globulin (2.1-4.2) g/dL Albumin/Globulin Ratio (1.0-2.2) Lipase (11-82) U/L Urine Color Urine Clarity (CLEAR) Urine pH (5.0-7.5) PH Ur Specific [place] (1.002-1.030) Urine Protein (NEGATIVE) mg/dL Urine Glucose (UA) (NEGATIVE) mg/dL Urine Ketones (NEGATIVE) mg/dL Urine Occult Blood (NEGATIVE) Urine Nitrite (NEGATIVE) Urine Bilirubin (NEGATIVE) Urine Urobilinogen (NORMAL) E.U./dL Ur Leukocyte Esterase (NEGATIVE) Urine RBC (0-5) /HPF Urine WBC (0-5) /HPF Ur Squamous Epith Cells (<= Few) Urine Bacteria (None Seen) /HPF Ur Microscopic Review Urine Culture Comments ABX Reporting Has patient been on IV antibiotics over the past 48 hours?: Yes Sepsis Event Note (H) - Evaluation Current Stage of Sepsis: Sepsis Possible source of Sepsis: positive: GI tract/intra-abdominal - Sepsis Criteria Sepsis Criteria: WBC count greater than 10% bands, WBC count greater than 12,000 or less than 4000 Assessment/Plan - Problem List (1) Sepsis Impression: closely monitor with continuous telemetry, serial BP and temperature monitoring . She has not been tachycardic she has not been hypotensive. She continues to have elevated white count although this is difficult to interpret in light of her chronic lymphocytic leukemia. Her lactate has been less than 1. Will continue with fluids overnight as she has been horribly nauseated today. We will continue with IV antibiotics Cipro and Flagyl. Blood cultures have not been sent. If she spikes a fever will send blood cultures. Acute diverticulitis Conclusion/Plan: -continue with IV antibiotics: Flagyl q8h and ciprofloxacin BID -bowel rest, clear liquids. She has tolerated minimal clear liquids today. She is incapacitated by nausea today. I have added Compazine for her nausea which has been minimally effective she is also getting Zofran. I am now adding some Ativan to assist with nausea and anxiety associated with it. -pain management: IV tylenol and morphine, switch to oral regiman as tolerated -trend White blood cell count. I will repeat lactate in the a.m. -If she is not improved by the a.m. I will consider repeating her CT scan.. There are no issues that would at this point necessitate surgical consultation.
[2024-01-24] MEDS: ONDANSETRON 4 MG/2 ML VIAL IVP ONE (12:12)
[2024-01-24] MEDS: FLUOROMETHOLONE 0.1% EACHEYE SCH (15:14)
[2024-01-24] MEDS: EYE EACHEYE SCH (15:14)
[2024-01-24 15:23] LABS: BASOPHILS % (AUTO) 0.2 %; EOSINOPHILS % (AUTO) 0.1 %; HCT - HEMATOCRIT 33.7 % (37.0-47.0); HGB - HEMOGLOBIN 10.3 g/dL (12.0-16.0); LYMPHOCYTES % (AUTO) 66.1 %; MEAN CORPUSCULAR HEMOGLOBIN 30.5 pg (27.0-31.0); MEAN CORPUSCULAR HGB CONC 30.6 g/dL (32.0-36.0); MEAN CORPUSCULAR VOLUME 99.7 fL (81.0-99.0); MEAN PLATELET VOLUME 9.4 fL (7.9-10.8); MONOCYTES % (AUTO) 2.2 %; NEUTROPHILS % (AUTO) 31.2 %; PLT - PLATELET COUNT 188 10^3/uL (130-450); RED BLOOD COUNT 3.38 10^6/uL (4.20-5.40); RED CELL DISTRIBUTION WIDTH 14.3 % (12.0-15.0); WHITE BLOOD COUNT 22.8 x10^3/uL (4.8-10.8)
[2024-01-24 15:25] LABS: ABNORMAL LYMPHS % (MANUAL) 0 %; BAND NEUTROPHILS % (MANUAL) 0 %
[2024-01-24 16:00] LABS: BASOPHILS # (MANUAL) 0.2 10^3/uL (0-0.1); BASOPHILS % (MANUAL) 1 %; DIFFERENTIAL COMMENT MANUAL DIFFERENTIAL; LYMPHOCYTES # (MANUAL) 12.3 10^3/uL (1.5-3.5); LYMPHOCYTES % (MANUAL) 54 %; MONOCYTES # (MANUAL) 0.5 10^3/uL (0.0-1.0); NEUTROPHILS # (MANUAL) 9.8 10^3/uL (1.5-6.6); PLATELET ESTIMATE, MANUAL NORMAL (130-450,000) (NORMAL); PLATELET MORPHOLOGY NORMAL APPEARANCE (NORMAL); RBC MORPHOLOGY (MULTIPLE) NORMAL APPEARANCE (NORMAL)
--- NOTE | 2024-01-24 16:24 | PHARMACY PROGRESS NOTE ---
- Best Possible Medication History Admit Date and Time: 01/23/24 9931 Processed by: Pharmacy Medications reviewed in ED?: No Medication History completed: Yes Secondary Source(s): Pharmacy records, Insurance records As the person ultimately responsible for medication therapy, providers are able to order a medication from an existing home medication list in [facility] via the "Reconcile Routine" prior to Confirmation of that medication by senior technical support engineer. Such practice is discouraged except when the physician, in their clinical judgment, deems that a medical need exists for a medication without regard to previous use.
[2024-01-24] MEDS: DOCUSATE SODIUM 250 MG CAPSULE PO ONE (16:43)
[2024-01-24] MEDS: PROCHLORPERAZINE 10 MG/2 ML VIAL IVP PRN (16:43)
[2024-01-24] MEDS ORDERED: LORazepam 2 MG/ML VIAL IVP PRN (17:11)
[2024-01-24] MEDS: LORazepam 2 MG/ML VIAL IVP PRN (19:05)
[2024-01-25] MEDS: oxyCODONE 5 MG TABLET PO PRN (00:05)
[2024-01-25] MEDS: ACETAMINOPHEN 1,000 MG/100 ML 1,000 MG/100 ML BAG IV PRN (01:16)
[2024-01-25 05:03] LABS: BASOPHILS % (AUTO) 0.2 %; EOSINOPHILS % (AUTO) 0.3 %; HCT - HEMATOCRIT 29.5 % (37.0-47.0); HGB - HEMOGLOBIN 8.8 g/dL (12.0-16.0); LYMPHOCYTES % (AUTO) 74.7 %; MEAN CORPUSCULAR HEMOGLOBIN 29.5 pg (27.0-31.0); MEAN CORPUSCULAR HGB CONC 29.8 g/dL (32.0-36.0); MEAN PLATELET VOLUME 9.2 fL (7.9-10.8); MONOCYTES % (AUTO) 2.6 %; PLT - PLATELET COUNT 165 10^3/uL (130-450); RED BLOOD COUNT 2.98 10^6/uL (4.20-5.40); RED CELL DISTRIBUTION WIDTH 14.2 % (12.0-15.0); WHITE BLOOD COUNT 17.2 x10^3/uL (4.8-10.8)
[2024-01-25] MEDS: SODIUM CHLORIDE FLUSH 0.9% 10 ML SYRINGE IVP PRN (05:06)
[2024-01-25 05:19] LABS: CALCIUM 6.9 mg/dL (8.5-10.3); CREATININE 0.6 mg/dL (0.6-1.3); POTASSIUM 3.2 mmol/L (3.5-4.5)
[2024-01-25 05:24] LABS: SLIDE REVIEW? Indicated
[2024-01-25 05:25] LABS: ABNORMAL LYMPHS % (MANUAL) 0 %; BAND NEUTROPHILS % (MANUAL) 0 %
[2024-01-25 05:52] LABS: LYMPHOCYTES % (MANUAL) 70 %; MONOCYTES # (MANUAL) 0.3 10^3/uL (0.0-1.0); NEUTROPHILS # (MANUAL) 4.8 10^3/uL (1.5-6.6)
[2024-01-25 05:53] LABS: DIFFERENTIAL COMMENT MANUAL DIFFERENTIAL
[2024-01-25 05:54] LABS: PLATELET ESTIMATE, MANUAL NORMAL (130-450,000) (NORMAL); PLATELET MORPHOLOGY NORMAL APPEARANCE (NORMAL); RBC MORPHOLOGY (MULTIPLE) 1+ HYPOCHROMASIA (NORMAL); WBC MORPHOLOGY (MULTIPLE) 1+ SMUDGE CELLS (NORMAL)
[2024-01-25 06:33] LABS: SLIDE SENT FOR PATH REVIEW? Indicated
[2024-01-25] MEDS: DOCUSATE SODIUM 250 MG CAPSULE PO SCH (08:37)
[2024-01-25] MEDS ORDERED: TEMAZEPAM 7.5 MG PO SCH (09:00)
[2024-01-25] MEDS ORDERED: FLUOROMETHOLONE EACHEYE SCH (09:00)
[2024-01-25] MEDS: POTASSIUM CHLOR 10 MEQ/100 ML 10 MEQ/100 ML BAG IV SCH (09:39)
[2024-01-25] MEDS: cefTRIAXone 2 GM in SODIUM CHLORIDE 0.9% MINIBAG 100 ML IV SCH (11:09)
--- NOTE | 2024-01-25 13:43 | PROVIDER PROGRESS NOTE ---
Subjective - Prog Note Date Prog Note Date: 01/25/24 Prog Note Time: 09:15 - Subjective Pt reports feeling: Improved Subjective: Ms. Penaloza flew in from [place] 01/22 and was feeling worse and worse throughout the day. When she got to [facility] the evening of 01/22 she was feeling quite poorly and had abdominal pain with a hx of diverticulitis. She tried [id number] pain relievers without much help. She was unable to tolerate small amounts of food and the abdominal pain kept worsening so she presented to the ED. Her CT showed diverticulitis without abscess or perforation. She continued to have nausea and dry heaving yesterday (01/23) and a lot of abdominal pain. Two weeks ago she was hospitalized back in her hometown of [facility] for a diverticular bleed. She had a partial colectomy in 2005 for perforation due to diverticulitis. Since then, she has had several exacerbations and been hospitalized multiple times. She is in the process of traveling for several months. She is here on the [facility] seeing family and plans to spend the better part of the winter in [place]. She and her are not sure if they will continue with their plans due to her current health. Today, she is resting in bed, rousable to voice, and very still as movement causes discomfort. She is A/Ox4 and states she feels better today. Her nausea has mostly subsided and she was able to eat her jello and juice this morning. She still has abdominal discomfort, primarily RLQ, and states it is a 5/10, stabbing pain, increased with palpation and movement. She denies any bloody or dark stool and did not have hematemesis or coffee ground emesis. She has not had a BM since 01/22, likely due to poor PO intake and vomiting. She denies chest pain, SOB, cough, headache, fever/chills, or dysuria. Her was present and we discussed that she appears better but it is still early in the day. He wanted to know how long to expect her to stay and we discussed that she needs to have controllable abdominal pain and able to tolerate oral intake with bowel movements. She is doing better than yesterday and her labs are reasurring. We will check in this afternoon to see how the day is going and if she continues to improve. They were both concerned that her hbg had decreased fro 10.3 to 8.8, understandable given her recent GI bleed requiring blood transfusion. I discussed that this is likely dilutional since she is receiving fluids and does not have an indications of active bleeding and that we will continue to monitor it. Current Medications - Current Medications Current Medications: Active Medications Generic Name Dose Route Start Last Admin Trade Name Domi PRN Reason Stop Dose Admin Docusate Sodium 250 mg 01/25/24 09:00 01/25/24 08:37 Docusate Sodium 250 Mg Capsule PO 250 mg DAILY HAYLEY Administration Metronidazole 500 mg in 100 mls @ 100 mls/hr 01/23/24 23:45 01/25/24 08:45 Flagyl 500 Mg/100 Ml IV Infused Q8H HAYLEY Infusion Acetaminophen 1,000 mg in 100 mls @ 400 mls/hr 01/24/24 17:22 01/25/24 07:27 Acetaminophen IV Infused Q6HR PRN Infusion Moderate Pain (Level 4-6) Sodium Chloride 1,000 mls @ 100 mls/hr 01/24/24 19:00 01/25/24 13:32 Normal Saline 0.9% IV 75 mls/hr .Q10H HAYLEY Infusion Ceftriaxone Sodium 2 gm/ 100 mls @ 200 mls/hr 01/25/24 10:30 01/25/24 13:10 Sodium Chloride IV Infused DAILY HAYLEY Infusion Lorazepam 1 mg 01/24/24 18:09 01/24/24 19:05 Lorazepam 2 Mg/Ml Vial IVP 1 mg Q4H PRN Administration Nausea / Vomiting Morphine Sulfate 2 mg 01/23/24 23:45 01/24/24 15:34 Morphine 2 Mg/Ml Carpuject IVP 2 mg Q2HR PRN Administration Pain 8 to 10 Oxycodone HCl 5 mg 01/24/24 17:22 01/25/24 00:05 Oxycodone 5 Mg Tablet PO 5 mg Q4HR PRN Administration Moderate Pain (Level 4-6) Patient Own Med ( 1 each 01/24/24 13:30 01/25/24 08:37 Fluorometholone 0.1% EACHEYE 1 each Eye Drops) DAILY HAYLEY Administration Prochlorperazine Edisylate 10 mg 01/24/24 16:21 01/25/24 05:05 Prochlorperazine 10 Mg/2 Ml Vial IVP 10 mg Q6HR PRN Administration Nausea / Vomiting Sodium Chloride 10 ml 01/23/24 23:45 01/25/24 05:06 Sodium Chloride Flush 0.9% 10 Ml Syringe IVP 10 ml PRN PRN Administration NEEDED PER PROVIDER ORDERS Sodium Chloride 10 ml 01/24/24 01:00 01/25/24 08:37 Sodium Chloride Flush 0.9% 10 Ml Syringe IVP 10 ml 0100,0900,1700 HAYLEY Administration Fluorometholone [Fml] 1 drops EACHEYE DAILY 01/24/24 Rosuvastatin Calcium [Crestor] 5 mg PO DAILY 01/24/24 Temazepam [Restoril] 7.5 mg PO HS 01/24/24 Objective - Vital Signs/Intake & Output Reviewed Vital Signs: Yes Vital Signs: Vital Signs x48h Temp Pulse Resp BP Pulse Ox 01/25/24 11:19 36.7 C 78 18 130/62 93 01/25/24 07:57 36.7 C 73 18 116/55 L 93 Intake & Output: Intake & Output 01/22/24 01/23/24 01/24/24 01/25/24 23:59 23:59 23:59 23:59 Intake Total 1000 3400.000 1763.333 Balance 1000 3400.000 1763.333 - Objective General Appearance: positive: Mild distress, Other (Rousable to voice but exhausted and resting with eyes closed) Eyes Bilateral: positive: Normal inspection ENT: positive: ENT inspection nml Neck: positive: Nml inspection Respiratory: positive: Chest non-tender, No respiratory distress, Breath sounds nml. negative: Wheezes, Rales, Rhonchi Cardiovascular: positive: Regular rate & rhythm, No murmur, No gallop Peripheral Pulses: 2+ Radial (R), 2+ Radial (L), 2+ Dorsalis pedis (R), 2+ Dorsalis pedis (L) Abdomen: positive: No organomegaly, No distention, Tenderness (Diffuse tenderness, especially RLQ), Rebound (RLQ). negative: Guarding, Abnml bowel sounds (Hyperactive bowel sounds) Back: positive: Nml inspection Skin: positive: Color nml, No rash, Warm, Dry Extremities: positive: Nml appearance, No pedal edema Neurologic/Psychiatric: positive: Oriented x3, CN's nml (2-12), Motor nml, Sensation nml, Mood/affect nml - Lab Results Fish Bones: 01/25/24 04:49 01/25/24 04:49 Other Labs: Lab Results x24hrs 01/25/24 01/25/24 01/24/24 Range/Units 04:49 04:49 18:20 WBC 17.2 H (4.8-10.8) x10^3/uL RBC 2.98 L (4.20-5.40) 10^6/uL Hgb 8.8 L (12.0-16.0) g/dL Hct 29.5 L (37.0-47.0) % MCV 99.0 (81.0-99.0) fL MCH 29.5 (27.0-31.0) pg MCHC 29.8 L (32.0-36.0) g/dL RDW 14.2 (12.0-15.0) % Plt Count 165 (130-450) 10^3/uL MPV 9.2 (7.9-10.8) fL Neut # (Auto) Not Reportable Lymph # (Auto) Not Reportable [place] # (Auto) Not Reportable Eos # (Auto) Not Reportable Baso # (Auto) Not Reportable Absolute Nucleated RBC Not Reportable Total Counted 100 Band Neuts % (Manual) 0 (0 - 10) % Abnorm Lymph % (Manual) 0 % Nucleated RBC % Not Reportable Neutrophils # (Manual) 4.8 (1.5-6.6) 10^3/uL Lymphocytes # (Manual) 12.0 H (1.5-3.5) 10^3/uL Monocytes # (Manual) 0.3 (0.0-1.0) 10^3/uL Eosinophils # (Manual) 0.0 (0-0.7) 10^3/uL Basophils # (Manual) 0.0 (0-0.1) 10^3/uL Differential Comment MANUAL DIFFERENTIAL Manual Slide Review Indicated WBC Morphology 1+ SMUDGE CELLS (NORMAL) Platelet Estimate NORMAL (130-450,000) (NORMAL) Platelet Morphology NORMAL APPEARANCE (NORMAL) RBC Morph Micro Appear 1+ HYPOCHROMASIA (NORMAL) Sodium 140 (135-145) mmol/L Potassium 3.2 L (3.5-4.5) mmol/L Chloride 110 (101-111) mmol/L Carbon Dioxide 24 (21-32) mmol/L Anion Gap 6.0 (6-13) BUN 4 L (6-20) mg/dL Creatinine 0.6 (0.6-1.3) mg/dL Estimated GFR (MDRD) 97 (>89) Glucose 82 (74-104) mg/dL Lactic Acid 0.5 (0.5-2.2) mmol/L Calcium 6.9 L (8.5-10.3) mg/dL Slides for Path Review Indicated 01/24/24 Range/Units 15:15 WBC 22.8 H (4.8-10.8) x10^3/uL RBC 3.38 L (4.20-5.40) 10^6/uL Hgb 10.3 L (12.0-16.0) g/dL Hct 33.7 L (37.0-47.0) % MCV 99.7 H (81.0-99.0) fL MCH 30.5 (27.0-31.0) pg MCHC 30.6 L (32.0-36.0) g/dL RDW 14.3 (12.0-15.0) % Plt Count 188 (130-450) 10^3/uL MPV 9.4 (7.9-10.8) fL Neut # (Auto) Not Reportable Lymph # (Auto) Not Reportable [place] # (Auto) Not Reportable Eos # (Auto) Not Reportable Baso # (Auto) Not Reportable Absolute Nucleated RBC Not Reportable Total Counted 100 Band Neuts % (Manual) 0 (0 - 10) % Abnorm Lymph % (Manual) 0 % Nucleated RBC % Not Reportable Neutrophils # (Manual) 9.8 H (1.5-6.6) 10^3/uL Lymphocytes # (Manual) 12.3 H (1.5-3.5) 10^3/uL Monocytes # (Manual) 0.5 (0.0-1.0) 10^3/uL Eosinophils # (Manual) 0.0 (0-0.7) 10^3/uL Basophils # (Manual) 0.2 H (0-0.1) 10^3/uL Differential Comment MANUAL DIFFERENTIAL Manual Slide Review WBC Morphology (NORMAL) Platelet Estimate NORMAL (130-450,000) (NORMAL) Platelet Morphology NORMAL APPEARANCE (NORMAL) RBC Morph Micro Appear NORMAL APPEARANCE (NORMAL) Sodium (135-145) mmol/L Potassium (3.5-4.5) mmol/L Chloride (101-111) mmol/L Carbon Dioxide (21-32) mmol/L Anion Gap (6-13) BUN (6-20) mg/dL Creatinine (0.6-1.3) mg/dL Estimated GFR (MDRD) (>89) Glucose (74-104) mg/dL Lactic Acid (0.5-2.2) mmol/L Calcium (8.5-10.3) mg/dL Slides for Path Review ABX Reporting Has patient been on IV antibiotics over the past 48 hours?: Yes Sepsis Event Note (H) - Evaluation Current Stage of Sepsis: Sepsis Possible source of Sepsis: positive: GI tract/intra-abdominal - Sepsis Criteria Sepsis Criteria: WBC count greater than 10% bands, WBC count greater than 12,000 or less than 4000 Assessment/Plan - Problem List (1) Sepsis Impression: She presented with sepsis due to diverticulitis. She reports feeling better today. Since admission, her WBCs have decreased from 32.7 to 17.2. They are chronically elevated between 30-50 so this represents a decrease from her baseline. Given that this is lower than her baseline, I am concerned that this could represent a decrease due to sepsis as it is below her baseline. Her lactate is <1 and she has not been tachycardic, hypotensive, or febrile. I will continue to monitor her HR, BP, temperature, lactate, and CBC daily. She was switched from cipro to ceftriaxone for better GI elyse coverage and continued on metronidazole. If she develops a fever or worsening signs of sepsis, I will order blood cultures. (2) Acute diverticulitis Impression: Abdominal pain with intractable nausea and vomiting starting on 01/22. CT showed diverticulitis without performation or abscess. She has a hx of diverticular disease with a diverticular bleed 2 weeks ago requiring transfusion. She had a partial colectomy in 2005 due to diverticular performation and has been hospitalized multiple times with diverticulitis since then. Her abdominal pain has decreased since yesterday, RLQ with rebound tenderness, no guarding, distention or rigidity. Appendicitis not a concern d/t previous appendectomy. Her nausea has mostly resolved and she was able to eat her jello and juice for breakfast without feeling nauseas. She has not vomited today. She denies any d ark or bloody stool and there was no report of bloody or coffee ground emesis yesterday. After consulting with nutrition, I have advanced her diet to full liquids and will check in this afternoon to see how she tolerates it. Discharge goals include controllable abdominal pain and ability to eat and void. She has been treated with cipro and metronidazole. I switched her cipro to ceftriaxone to provide better GI coverage and continued the metronidazole. (3) Hypokalemia due to excessive gastrointestinal loss of potassium Impression: Her potassium decreased from 3.9 upon admission to 3.2 today. This is likely due to her intractable nausea and vomiting yesterday with GI loss. I will replace 40 mEq of potassium IV over 4 hrs. I will also check a mag level with tomorrow mornings labs and replace if needed. She is on tele monitoring. (4) Anemia Impression: Today, her hbg is 8.8 which a decrease from 10.3 upon admission. This is likely dilutional and within the range of lab variance. However, with her recent GI bleed and with the drop being on the bigger end of these two factors, I will monitor her hbg daily and evaluate for signs of bleeding. She denies dark or bloody stool, CT did not find evidence of perforation, and no bloody or coffee ground emesis was reported yesterday. If she drops below 7 I will transfuse, repeat her abdominal CT, and consult with surgery. (5) CLL (chronic lymphocytic leukemia) Impression: She has CLL and states her usual WBC is between 30-50. This alters intrepetation of her WBCs in acute infection and her current decrease from 32.7 to 17.2 could represent a drop related to sepsis rather than an improvement in her condition. I will continue to monitor her lactate, WBCs, HR, BP and temperature for signs of worsening sepsis.
[2024-01-25] MEDS: POTASSIUM CHLOR 10 MEQ/100 ML 10 MEQ/100 ML BAG IV ONE (19:57)
[2024-01-26 05:14] LABS: BASOPHILS % (AUTO) 0.2 %; EOSINOPHILS % (AUTO) 0.6 %; HCT - HEMATOCRIT 28.8 % (37.0-47.0); HGB - HEMOGLOBIN 8.9 g/dL (12.0-16.0); LYMPHOCYTES % (AUTO) 83.4 %; MEAN CORPUSCULAR HEMOGLOBIN 30.5 pg (27.0-31.0); MEAN CORPUSCULAR HGB CONC 30.9 g/dL (32.0-36.0); MEAN CORPUSCULAR VOLUME 98.6 fL (81.0-99.0); MEAN PLATELET VOLUME 9.4 fL (7.9-10.8); MONOCYTES % (AUTO) 2.4 %; NEUTROPHILS % (AUTO) 13.3 %; PLT - PLATELET COUNT 180 10^3/uL (130-450); RED BLOOD COUNT 2.92 10^6/uL (4.20-5.40); RED CELL DISTRIBUTION WIDTH 14.3 % (12.0-15.0); WHITE BLOOD COUNT 18.3 x10^3/uL (4.8-10.8)
[2024-01-26 05:28] LABS: ABNORMAL LYMPHS % (MANUAL) 0 %; BAND NEUTROPHILS % (MANUAL) 0 %
[2024-01-26 05:47] LABS: CALCIUM 7.5 mg/dL (8.5-10.3); CREATININE 0.7 mg/dL (0.6-1.3); MAGNESIUM 1.7 mg/dL (1.7-2.3); POTASSIUM 3.6 mmol/L (3.5-4.5)
[2024-01-26 05:51] LABS: EOSINOPHILS # (MANUAL) 0.2 10^3/uL (0-0.7); LYMPHOCYTES # (MANUAL) 13.2 10^3/uL (1.5-3.5); LYMPHOCYTES % (MANUAL) 72 %; MONOCYTES # (MANUAL) 0.7 10^3/uL (0.0-1.0); NEUTROPHILS # (MANUAL) 4.2 10^3/uL (1.5-6.6); PLATELET ESTIMATE, MANUAL NORMAL (130-450,000) (NORMAL); RBC MORPHOLOGY (MULTIPLE) NORMAL APPEARANCE (NORMAL)
[2024-01-26 05:52] LABS: DIFFERENTIAL COMMENT MANUAL DIFFERENTIAL; WBC MORPHOLOGY (MULTIPLE) 1+ SMUDGE CELLS (NORMAL)
--- NOTE | 2024-01-26 12:55 | PROVIDER PROGRESS NOTE ---
Subjective - Prog Note Date Prog Note Date: 01/26/24 Prog Note Time: 08:30 - Subjective Pt reports feeling: Improved Subjective: Ms. Penaloza flew in from [place] 01/22 and was feeling worse and worse throughout the day. When she got to [facility] the evening of 01/22 she was feeling quite poorly and had abdominal pain with a hx of diverticulitis. She tried [id number] pain relievers without much help. She was unable to tolerate small amounts of food and the abdominal pain kept worsening so she presented to the ED. Her CT showed diverticulitis without abscess or perforation. She continued to have nausea and dry heaving on 01/23 and had a lot of abdominal pain. Two weeks ago she was hospitalized back in her hometown of [facility] for a diverticular bleed. She had a partial colectomy in 2005 for perforation due to diverticulitis. Since then, she has had several exacerbations and been hospitalized multiple times. She is in the process of traveling for several months. She is here on the [facility] seeing family and plans to spend the better part of the winter in [place]. She and her are not sure if they will continue with their plans due to her current health. Today, she is resting in bed, alert and conversant. She is A/Ox4 and states she feels better today. Her nausea has mostly subsided and she was able to eat some of her spaghetti last night and breakfast this morning. She has RUQ and RLQ pain, 2/10, sharp, intermittent, that increases with movement or palpation. She had a BM yesterday evening and it was not bloody or dark. She was up and out of bed but fatigued easily and did not go far outside her room. She plans to get up and try to walk more today. She denies SOB, chest pain, palpitations, headache, fever/chills or dysuria. Her was present and we discussed her current labs. Her lactic remains <1, procalcitonin is <0.5, and her symptoms have improved suggesting her infection is resolving. Her hbg is stable and she has no evidence of bleeding making a recurrent bleed unlikely. If she is able to control her symptoms with PO pain medications and anti-emetics, she will likely discharge tomorrow. Current Medications - Current Medications Current Medications: Active Medications Generic Name Dose Route Start Last Admin Trade Name Freq PRN Reason Stop Dose Admin Docusate Sodium 250 mg 01/25/24 09:00 01/26/24 10:32 Docusate Sodium 250 Mg Capsule PO Not Given DAILY HAYLEY Metronidazole 500 mg in 100 mls @ 100 mls/hr 01/23/24 23:45 01/26/24 08:40 Flagyl 500 Mg/100 Ml IV Infused Q8H HAYLEY Infusion Acetaminophen 1,000 mg in 100 mls @ 400 mls/hr 01/24/24 17:22 01/25/24 07:27 Acetaminophen IV Infused Q6HR PRN Infusion Moderate Pain (Level 4-6) Sodium Chloride 1,000 mls @ 100 mls/hr 01/24/24 19:00 01/26/24 09:25 Normal Saline 0.9% IV 100 mls/hr .Q10H HAYLEY Infusion Ceftriaxone Sodium 2 gm/ 100 mls @ 200 mls/hr 01/25/24 10:30 01/26/24 09:25 Sodium Chloride IV Infused DAILY HAYLEY Infusion Lorazepam 1 mg 01/24/24 18:09 01/26/24 00:24 Lorazepam 2 Mg/Ml Vial IVP 1 mg Q4H PRN Administration Nausea / Vomiting Morphine Sulfate 2 mg 01/23/24 23:45 01/24/24 15:34 Morphine 2 Mg/Ml Carpuject IVP 2 mg Q2HR PRN Administration Pain 8 to 10 Ondansetron HCl 4 mg 01/26/24 10:21 Ondansetron Odt 4 Mg Tablet TL Q6HR PRN Nausea / Vomiting Oxycodone HCl 5 mg 01/24/24 17:22 01/26/24 00:24 Oxycodone 5 Mg Tablet PO 5 mg Q4HR PRN Administration Moderate Pain (Level 4-6) Patient Own Med ( 1 each 01/24/24 13:30 01/26/24 10:32 Fluorometholone 0.1% EACHEYE 1 each Eye Drops) DAILY HAYLEY Administration Prochlorperazine Edisylate 10 mg 01/24/24 16:21 01/25/24 20:12 Prochlorperazine 10 Mg/2 Ml Vial IVP 10 mg Q6HR PRN Administration Nausea / Vomiting Sodium Chloride 10 ml 01/23/24 23:45 01/25/24 05:06 Sodium Chloride Flush 0.9% 10 Ml Syringe IVP 10 ml PRN PRN Administration NEEDED PER PROVIDER ORDERS Sodium Chloride 10 ml 01/24/24 01:00 01/26/24 10:32 Sodium Chloride Flush 0.9% 10 Ml Syringe IVP 10 ml 0100,0900,1700 HAYLEY Administration Fluorometholone [Fml] 1 drops EACHEYE DAILY 01/24/24 Rosuvastatin Calcium [Crestor] 5 mg PO DAILY 01/24/24 Temazepam [Restoril] 7.5 mg PO HS 01/24/24 Objective - Vital Signs/Intake & Output Reviewed Vital Signs: Yes Vital Signs: Vital Signs x48h Temp Pulse Resp BP Pulse Ox 01/26/24 08:00 36.8 C 77 18 125/72 92 Intake & Output: Intake & Output 01/23/24 01/24/24 01/25/24 01/26/24 23:59 23:59 23:59 23:59 Intake Total 1000 3400.000 3300.000 2168.333 Output Total 350 Balance 1000 3400.000 2950.000 2168.333 - Objective General Appearance: positive: No acute distress, Other (78 y/o female, alert and conversant, reclined in bed) Eyes Bilateral: positive: Normal inspection ENT: positive: ENT inspection nml Neck: positive: Nml inspection Respiratory: positive: Chest non-tender, No respiratory distress, Breath sounds nml Cardiovascular: positive: Regular rate & rhythm, No murmur, No gallop Peripheral Pulses: 2+ Radial (R), 2+ Radial (L), 2+ Dorsalis pedis (R), 2+ Dorsalis pedis (L) Abdomen: positive: No organomegaly, Nml bowel sounds, No distention, Tenderness (RUQ and RLQ). negative: Guarding, Rebound Back: positive: Nml inspection Skin: positive: Color nml, No rash, Warm, Dry Extremities: positive: Nml appearance, No pedal edema Neurologic/Psychiatric: positive: Oriented x3, CN's nml (2-12), Motor nml, Sensation nml, Mood/affect nml - Lab Results Fish Bones: 01/26/24 05:00 01/26/24 05:00 Other Labs: Lab Results x24hrs 09/05/0801/26/24 01/26/24 Range/Units 05:00 05:00 05:00 WBC (4.8-10.8) x10^3/uL RBC (4.20-5.40) 10^6/uL Hgb (12.0-16.0) g/dL Hct (37.0-47.0) % MCV (81.0-99.0) fL MCH (27.0-31.0) pg MCHC (32.0-36.0) g/dL RDW (12.0-15.0) % Plt Count (130-450) 10^3/uL MPV (7.9-10.8) fL Neut # (Auto) Lymph # (Auto) [place] # (Auto) Eos # (Auto) Baso # (Auto) Absolute Nucleated RBC Total Counted Band Neuts % (Manual) (0 - 10) % Abnorm Lymph % (Manual) % Nucleated RBC % Neutrophils # (Manual) (1.5-6.6) 10^3/uL Lymphocytes # (Manual) (1.5-3.5) 10^3/uL Monocytes # (Manual) (0.0-1.0) 10^3/uL Eosinophils # (Manual) (0-0.7) 10^3/uL Basophils # (Manual) (0-0.1) 10^3/uL Differential Comment WBC Morphology (NORMAL) Platelet Estimate (NORMAL) RBC Morph Micro Appear (NORMAL) Sodium 141 (135-145) mmol/L Potassium 3.6 (3.5-4.5) mmol/L Chloride 113 H (101-111) mmol/L Carbon Dioxide 25 (21-32) mmol/L Anion Gap 3.0 L (6-13) BUN 5 L (6-20) mg/dL Creatinine 0.7 (0.6-1.3) mg/dL Estimated GFR (MDRD) 81 L (>89) Glucose 84 (74-104) mg/dL Lactic Acid 0.5 (0.5-2.2) mmol/L Calcium 7.5 L (8.5-10.3) mg/dL Magnesium 1.7 (1.7-2.3) mg/dL Procalcitonin Immunoas < 0.05 (<0.5) ng/mL 01/26/24 Range/Units 05:00 WBC 18.3 H (4.8-10.8) x10^3/uL RBC 2.92 L (4.20-5.40) 10^6/uL Hgb 8.9 L (12.0-16.0) g/dL Hct 28.8 L (37.0-47.0) % MCV 98.6 (81.0-99.0) fL MCH 30.5 (27.0-31.0) pg MCHC 30.9 L (32.0-36.0) g/dL RDW 14.3 (12.0-15.0) % Plt Count 180 (130-450) 10^3/uL MPV 9.4 (7.9-10.8) fL Neut # (Auto) Not Reportable Lymph # (Auto) Not Reportable [place] # (Auto) Not Reportable Eos # (Auto) Not Reportable Baso # (Auto) Not Reportable Absolute Nucleated RBC Not Reportable Total Counted 100 Band Neuts % (Manual) 0 (0 - 10) % Abnorm Lymph % (Manual) 0 % Nucleated RBC % Not Reportable Neutrophils # (Manual) 4.2 (1.5-6.6) 10^3/uL Lymphocytes # (Manual) 13.2 H (1.5-3.5) 10^3/uL Monocytes # (Manual) 0.7 (0.0-1.0) 10^3/uL Eosinophils # (Manual) 0.2 (0-0.7) 10^3/uL Basophils # (Manual) 0.0 (0-0.1) 10^3/uL Differential Comment MANUAL DIFFERENTIAL WBC Morphology 1+ SMUDGE CELLS (NORMAL) Platelet Estimate NORMAL (130-450,000) (NORMAL) RBC Morph Micro Appear NORMAL APPEARANCE (NORMAL) Sodium (135-145) mmol/L Potassium (3.5-4.5) mmol/L Chloride (101-111) mmol/L Carbon Dioxide (21-32) mmol/L Anion Gap (6-13) BUN (6-20) mg/dL Creatinine (0.6-1.3) mg/dL Estimated GFR (MDRD) (>89) Glucose (74-104) mg/dL Lactic Acid (0.5-2.2) mmol/L Calcium (8.5-10.3) mg/dL Magnesium (1.7-2.3) mg/dL Procalcitonin Immunoas (<0.5) ng/mL ABX Reporting Has patient been on IV antibiotics over the past 48 hours?: Yes Sepsis Event Note (H) - Evaluation Current Stage of Sepsis: Sepsis Possible source of Sepsis: positive: GI tract/intra-abdominal - Sepsis Criteria Sepsis Criteria: WBC count greater than 10% bands, WBC count greater than 12,000 or less than 4000 Assessment/Plan - Problem List (1) Sepsis Impression: She presented with sepsis due to diverticulitis. She reports feeling better today. Since admission, her WBCs have decreased from 32.7 to 17.2 and are now 18.3. They are chronically elevated between 30-50 so this represents a decrease from her baseline. Given that this is lower than her baseline, I am concerned that this could represent a decrease due to sepsis as it is below her baseline. Her lactate is <1 and she has not been tachycardic, hypotensive, or febrile. She was switched from cipro to ceftriaxone for better GI elyse coverage and continued on metronidazole. She remains afebrile without tachycardia or hypotension. Lactic <1.0 and procalcitonin <0.5 which suggest sepsis is resolv ed. I will continue to monitor temperature, BP, HR, and AM labs. (2) Acute diverticulitis Impression: Abdominal pain with intractable nausea and vomiting starting on 01/22. CT showed diverticulitis without performation or abscess. She has a hx of diverticular disease with a diverticular bleed 2 weeks ago requiring transfusion. She had a partial colectomy in 2005 due to diverticular performation and has been hospitalized multiple times with diverticulitis since then. Her abdominal pain has decreased since yesterday, RLQ without rebound tenderness, guarding, distention or rigidity. Appendicitis not a concern d/t previous appendectomy. Her nausea has mostly resolved and she has not vomited today. She denies any dark or bloody stool and there was no report of bloody or coffee ground emesis. She had a small BM last night that was not dark or bloody. She was able to tolerate a normal diet last night and this morning without vomiting, eating at least part of her meals. Her pain has been managed with PO oxycodone and I have switched her to oral zofran for nausea. I switched her cipro to ceftriaxone to provide better GI coverage and continued the metronidazole yesterday. If she is able to eat and drink fluids with normal BMs and manage her pain and nausea with PO meds, she will have reached goals and I anticipate she will discharge tomorrow. (3) Hypokalemia due to excessive gastrointestinal loss of potassium Impression: Resolved. Her potassium decreased from 3.9 upon admission to 3.2 yesterday. It was repleted and is now 3.6. It was likely due to GI loss from excessive vomiting. I will continue to monitor with AM labs. (4) Anemia Impression: Today, her hbg is 8.9 which a decrease from 10.3 upon admission but stable as it was 8.8 yesterday. This is likely dilutional and within the range of lab variance. She denies dark or bloody stool, CT did not find evidence of perforation, and no bloody or coffee ground emesis was reported yesterday. I will monitor her hbg daily and evaluate for signs of bleeding. If she drops below 7 I will transfuse, repeat her abdominal CT, and consult with surgery. (5) CLL (chronic lymphocytic leukemia) Impression: She has CLL and states her usual WBC is between 30-50. This alters int erpretation of her WBCs in acute infection and her decrease from 32.7 to 17.2 could represent a drop related to sepsis rather than an improvement in her condition. Today it is 18.3. Lactate has remained <1.0 and procalcitonin <0.5 with stable vitals suggesting she is no longer septic.
[2024-01-26] MEDS ORDERED: TEMAZEPAM 15 MG CAPSULE PO PRN (22:14)
--- NOTE | 2024-01-26 22:15 | PROVIDER PROGRESS NOTE ---
Entry Level Machine Operator Note - Entry Level Machine Operator Note Entry Level Machine Operator Note: Called by RN stating "Pt admitted for diverticulitis. Pt normally takes temazepam 7.5mg po every night, it is listed on home meds. Can you please order this? Thank you!" Restoril 7.5 mg po qhs prn insomnia ordered as per home dose
[2024-01-27] MEDS: ONDANSETRON ODT 4 MG TABLET TL PRN (02:28)
[2024-01-27 05:41] LABS: BASOPHILS % (AUTO) 0.3 %; EOSINOPHILS % (AUTO) 0.7 %; HCT - HEMATOCRIT 29.8 % (37.0-47.0); HGB - HEMOGLOBIN 9.2 g/dL (12.0-16.0); LYMPHOCYTES % (AUTO) 81.9 %; MEAN CORPUSCULAR HEMOGLOBIN 30.2 pg (27.0-31.0); MEAN CORPUSCULAR HGB CONC 30.9 g/dL (32.0-36.0); MEAN CORPUSCULAR VOLUME 97.7 fL (81.0-99.0); MEAN PLATELET VOLUME 9.3 fL (7.9-10.8); MONOCYTES % (AUTO) 2.2 %; NEUTROPHILS % (AUTO) 14.7 %; PLT - PLATELET COUNT 193 10^3/uL (130-450); RED BLOOD COUNT 3.05 10^6/uL (4.20-5.40); RED CELL DISTRIBUTION WIDTH 14.1 % (12.0-15.0); WHITE BLOOD COUNT 19.2 x10^3/uL (4.8-10.8)
[2024-01-27 05:47] LABS: ABNORMAL LYMPHS % (MANUAL) 0 %; BAND NEUTROPHILS % (MANUAL) 0 %
[2024-01-27 05:54] LABS: CALCIUM 7.9 mg/dL (8.5-10.3); CREATININE 0.6 mg/dL (0.6-1.3); POTASSIUM 3.6 mmol/L (3.5-4.5)
[2024-01-27 06:40] LABS: DIFFERENTIAL COMMENT MANUAL DIFFERENTIAL; EOSINOPHILS # (MANUAL) 0.2 10^3/uL (0-0.7); LYMPHOCYTES # (MANUAL) 15.7 10^3/uL (1.5-3.5); LYMPHOCYTES % (MANUAL) 82 %; MONOCYTES # (MANUAL) 0.2 10^3/uL (0.0-1.0); NEUTROPHILS # (MANUAL) 3.1 10^3/uL (1.5-6.6); PLATELET ESTIMATE, MANUAL NORMAL (130-450,000) (NORMAL); RBC MORPHOLOGY (MULTIPLE) NORMAL APPEARANCE (NORMAL); WBC MORPHOLOGY (MULTIPLE) 1+ SMUDGE CELLS (NORMAL)
[2024-01-27 08:50] VITALS: BP 122/72; O2SAT 96
--- NOTE | 2024-01-27 09:05 | Discharge Plan ---
Discharge Plan Problem Reviewed?: Yes Diet: Regular Activity Restrictions: No Restrictions Shower Restrictions: No Driving Restrictions: No No Smoking: If you smoke, Please STOP! Call for help. Disposition: Home, Self Care Condition: Good Prescriptions: oxyCODONE [Roxicodone] 5 mg PO Q4HR PRN #20 tab PRN Reason: Moderate Pain (Level 4-6) Ondansetron Odt [Zofran Odt] 4 mg TL Q6HR PRN #60 tab PRN Reason: Nausea / Vomiting Cefdinir 300 mg PO BID #20 cap metroNIDAZOLE [Flagyl] 500 mg PO TID 10 Days #30 tablet Instruction Topics: Diverticulitis Dc Health Concerns: You were admitted for diverticulitis with sepsis from the infection. The CT showed diverticulitis without an abscess or bleeding. You also had nausea and vomiting and abdominal pain which we treated with pain medication and anti- nausea medication. You have been receiving IV antibiotics and fluids and your infection is resolving. You had some electrolyte imbalances due to your illness which we also corrected. You will be continuing on oral antibiotics for 10 days and it is important that you finish the course. You will also have pain medication and nausea medication you can use if needed. You have had a rough couple of months with several UTIs and a diverticular GI bleed 2.5 weeks ago. You also have CLL with chronically elevated white blood cell counts between 30-50. During your admission, your white blood cells decreased from 32.7 to 17.2 but have since increased again to 19.2 today. It is likely that the lower than normal white blood cell counts were the result of your infection and sepsis. We measured lactic acid as an additional marker of infection severity and the numbers have remained <1 for your entire stay which is reassuring. We also measured procalcitonin yesterday which was <0.5 and suggests your infection is resolved. These labs are reassuring and the small increase in your white blood cells towards normal indicates your sepsis is resolved. You have mild anemia, likely related to blood loss from your recent diverticular bleed which required a blood transfusion. Your initial hemoglobin was 10.9, with normal being 12-16. It did decrease to 8.8 which was likely dilutional as you were dehydrated when you came in from vomiting and we gave you IV fluids. You had no bloody or dark stool, no bloody vomit, and no evidence of bleeding on CT. It has since increased to 9.2 which is good. You are still recovering from your bleed and your body will continue to regenerate red blood cells. Continuing with iron supplementation and eating foods rich with iron will support your recovery. You are still recovering and should expect you might feel more tired than usual. Take rest as you need it. I know you have travel plans and see no reason you can't continue. Make sure you know where hospitals are when you travel and have med-evac coverage. Please follow-up with your oncologist and PCP as needed. Plan of Treatment: 1: Complete 10 day course of antibiotics. 2: Manage any nausea/vomiting with zofran as needed 3: Manage any abdominal pain with oxycodone as needed 4:Tylenol is really good pain medication as well. you can take it with the oxycodone, and with the other meds that you are taking. it is OK to take 1,000mg (2 extra strength pills) three times a day as needed. 5: Resume your regular home medications, avoid any aspirin and ibuprofen for the near future due to risk of bleeding 6: If your symptoms worsen or you feel persistently ill with fevers, chills, dizziness, shortness of breath, abdominal pain, or dark or bloody stools or vomit, go to an ED for evaluation 7: PCP and GI MD followup when you get home. you will need colonoscopy, but not until AT LEAST 6 weeks after this episode. Additional Instructions or Follow Up instructions: Follow up with your PCP in [place] and your oncologist as needed
--- NOTE | 2024-01-27 11:10 | DISCHARGE SUMMARY ---
<Nicky Dela Cruz - Last Filed: 01/27/24 11:07> Discharge Summary Admit Date: 01/23/24 Discharge Date: 01/27/24 Discharging Provider: Tiana Robertson PA-C Code Status: Attempt Resuscitation Condition at Discharge: Good Discharge Disposition: 01 Home, Self Care - DIAGNOSES Admission Diagnoses: 1. Acute diverticulitis 2. Sepsis Discharge Diagnoses with Status of Each Condition: (1) Sepsis Impression: Resolved: She presented with sepsis due to diverticulitis. She reports feeling better today. Since admission, her WBCs have decreased from 32.7 to 17.2 and are now 19.2. They are chronically elevated between 30-50 so this represents a decrease from her baseline. Given that this is lower than her baseline, I believe this represented a decrease due to sepsis as it is below her baseline. Her lactate was <1 and she has not been tachycardic, hypotensive, or febrile since admission. She received IV fluids during her admission. She was switched from cipro to ceftriaxone for better GI elyse coverage and continued on metronidazole. She remains afebrile without tachycardia or hypotension. Lactic acid remains <1.0, procalcitonin <0.5, and WBCs have increased slightly which suggest sepsis is resolved. (2) Acute diverticulitis Impression: Resolved. She presented with abdominal pain with intractable nausea and vomiting starting on 01/22. CT showed diverticulitis without performation or abscess. She has a hx of diverticular disease with a diverticular bleed 2 weeks ago requiring transfusion. She had a partial colectomy in 2005 due to diverticular perforation and has been hospitalized multiple times with diverticulitis since then. Her abdominal pain was RLQ with rebound tenderness, no guarding, distention or rigidity. Appendicitis not a concern d/t previous appendectomy. Her nausea was managed with IV prochlorperazine during admission. She denies any dark or bloody stool and there was no report of bloody or coffee ground emesis. She had a several small BMs over the past 2 days which were not dark or bloody. She has been tolerating a normal diet since the evening of 01/24 and at all of her meal without difficulty the morning of discharge. Her pain has been managed with IB morphine or oral oxycodone as needed I switched her cipro to ceftriaxone to provide better GI coverage and continued the metronidazole on 01/24. She is being discharged on Cefdenire and flagyl for 10 days, total course duration of 14 days. (3) Hypokalemia due to excessive gastrointestinal loss of potassium Impression: Resolved. Her potassium decreased from 3.9 upon admission to 3.2. It was repleted and is now 3.6. It was likely due to GI loss from excessive vomiting. (4) Anemia Impression: Stable: Her hbg was 10.9 upon admission, decreased to 8.8 and is now 9.2. This is likely dilutional and within the range of lab variance. She denies dark or bloody stool, CT did not find evidence of perforation, and no bloody or coffee ground emesis was reported yesterday. Her baseline anemia is likely due to acute blood loss from her recent diverticular GI bleed requiring transfusion. She can continue her iron supplementation. (5) CLL (chronic lymphocytic leukemia) Impression: Stable: She has CLL and states her usual WBC is between 30-50. This alters interpretation of her WBCs in acute infection and her decrease from 32.7 to 17.2 could represent a drop related to sepsis rather than an improvement in her condition. Today it is 19.2. Lactate has remained <1.0 and procalcitonin <0.5 with stable vitals suggesting she is no longer septic. She should continue to follow with her oncologist for this. - HPI History of Present Illness: Admission HPI: "Mrs. Penaloza is a 78yo F with a history of diverticulosis who presented to the ED with abdominal pain. Pain has progressively worsened for the past several days. It is more generalized but located in the upper right and left quadrants of her abdomen. she has some nausea, but no vomiting. she denies any sick contacts. she is visiting from out of town. she was recently discharge from the hospital due to diverticular bleeding. she did require blood transfusion of 1 unit PRBC. she was to follow up with her primary GI specialist for a colonoscopy in the upcoming weeks. Chart reviewed for this admission. patient met sepsis criteria on presentation. CT was obtained and demonstrated changes consistent with diverticulitis of the transverse colon. during my evaluation patient was resting comfortably and rated her pain 5/10 in intensity." - CONSULTS | PROCEDURES Procedures: CT abdomen/pelvis: 1. Proximal transverse colon diverticulitis. No abscess or perforation. 2. Rectosigmoid anastomosis. No small bowel obstruction. No adenopathy. - ALLERGIES Allergies/Adverse Reactions: Allergies Allergy/AdvReac Type Severity Reaction Status Date / Time diphenhydramine Allergy Itching Verified 01/23/24 20:34 [From Benmary jane] - MEDICATIONS Home Medications: Ambulatory Orders Medication Instructions Recorded Confirmed Fluorometholone [Fml] 1 drops EACHEYE DAILY 01/24/24 01/24/24 Rosuvastatin Calcium [Crestor] 5 mg PO DAILY 01/24/24 01/24/24 Temazepam [Restoril] 7.5 mg PO HS 01/24/24 01/24/24 Cefdinir 300 mg PO BID #20 cap 01/27/24 Docusate Sodium 250Mg Capsule 250 mg PO DAILY cap 01/27/24 [Colace 250Mg Capsule] Ondansetron Odt [Zofran Odt] 4 mg TL Q6HR PRN #60 tab 01/27/24 metroNIDAZOLE [Flagyl] 500 mg PO TID 10 Days #30 tablet 01/27/24 oxyCODONE [Roxicodone] 5 mg PO Q4HR PRN #20 tab 01/27/24 - PHYSICAL EXAM AT DISCHARGE General Appearance: positive: No acute distress, Alert Eyes Bilateral: positive: Normal inspection ENT: positive: ENT inspection nml Neck: positive: Nml inspection Respiratory: positive: Chest non-tender, No respiratory distress, Breath sounds nml. negative: Wheezes, Rales, Rhonchi Cardiovascular: positive: Regular rate & rhythm, No murmur, No gallop Peripheral Pulses: positive: 2+ Abdomen: positive: Non-tender, No organomegaly, Nml bowel sounds, No distention Back: positive: Nml inspection Skin: positive: Color nml, No rash, Warm, Dry Extremities: positive: Non-tender, Nml appearance, No pedal edema Neurologic/Psychiatric: positive: Oriented x3, CN's nml (2-12), Motor nml, Sensation nml, Mood/affect nml - LABS Result Diagrams: 01/27/24 05:20 01/27/24 05:20 - SEPSIS Current Stage of Sepsis: Resolved Possible source of Sepsis: GI tract/intra-abdominal Sepsis Criteria: WBC count greater than 10% bands, WBC count greater than 12,000 or less than 4000 <Tiana Robertson - Last Filed: 01/27/24 11:51> Discharge Summary - HOSPITAL COURSE Hospital Course: She was admitted with sepsis secondary to acute diverticulitis without perforation or abscess. Her sepsis criteria were elevated white blood cell count. She does have a history of chronic lymphocytic leukemia and normally has a white blood cell count of 30-50,000. She was afebrile she was not tachycardic she was not hypotensive She had intractable nausea as well as abdominal pain. This gradually resolved with treatment with medications symptomatically as well as antibiotics for infection. She had a course of steady improvement and by hospital day 4 was in stable condition. Her abdominal pain was 2 out of 10 she was able to tolerate a regular diet and resume normal activities. She was discharged home the care of her . She will stay in the area for 8 days after discharge to assure her recovery. She was counseled that she should have a colonoscopy 6 to 8 weeks after this acute episode. - LABS Result Diagrams: 01/27/24 05:20 01/27/24 05:20 - TIME SPENT Time Spent in Discharge (Minutes): 45
[2024-01-29 08:50] LABS: PATHOLOGIST SLIDE COMMENTS SEE SEPARATE REPORT
== END 2024-01-27 12:30 | disposition home or self-care (01) | DRG 872 ==
LOC: ED 20:30 → MS2 23:45 → OBSVTOIN 01-25 11:10
PROVIDERS: ADMIT Hospitalist; ATTEND Physician Assistant Medical
DX: A41.9 Sepsis, unspecified organism (principal); K57.32 Diverticulitis of large intestine without perforation or abscess without bleeding; D72.829 Elevated white blood cell count, unspecified; C91.10 Chronic lymphocytic leukemia of B-cell type not having achieved remission; E87.6 Hypokalemia; D64.9 Anemia, unspecified; G47.00 Insomnia, unspecified
CPT/HCPCS: 36415; 74177; 80048; 80053; 81001; 83605; 83690; 83735; 84145; 85025; 96361; 96365; 96366; 96367; 96375; 96376; 99284; 99285; A9270; G0378; J0131; J1170; J2060; Q0162; Q9967; 81003; 87086